=== PATIENT | female | born 1960 | race Caucasian/White ===

== ENCOUNTER → 2016-12-14 | Outpatient (CLI) | payer MEDICAID | END | disposition home or self-care (01) | LOC: MW.CHOBGYN 14:32 | PROVIDERS: ATTEND Nurse Practitioner Women's Health | DX: E11.9 Type 2 diabetes mellitus without complications (principal); R05 Cough | CPT/HCPCS: 81001 ==

== ENCOUNTER 2020-09-25 13:50 | Observation (INO) | payer MEDICAID ==
[2020-09-25] MEDS ORDERED: Morphine 4 MG/ML Syringe IVPUSH ONE (14:02)
[2020-09-25] MEDS ORDERED: Ondansetron 4 MG/2 ML SDV IVPUSH ONE (14:02)
[2020-09-25] MEDS ORDERED: Sodium Chloride 0.9% 10 ML Syringe FLUSH PRN (14:02)
[2020-09-25] MEDS ORDERED: Sodium Chloride 0.9% 2.5 ML Syringe FLUSH PRN (14:02)
--- NOTE | 2020-09-25 14:05 | EDM.PDOC ---
ED HPI GENERAL MEDICAL PROBLEM - General Chief Complaint: Abdominal Pain Stated Complaint: SHARP PAINS Time Seen by Provider: 09/25/20 13:54 Source of Information: Reports: Patient History Limitations: Reports: No Limitations - History of Present Illness INITIAL COMMENTS - FREE TEXT/NARRATIVE: HISTORY AND PHYSICAL: History of present illness: Patient is a 60-year-old female who presents to the emergency room with complaints of right lower quadrant abdominal pain, nausea and vomiting since yesterday. She states the pain initially started as a burning sensation is now a "sharp stabbing pain". She does have some mild nausea and vomiting associated with this. Patient denies any fever, chills, headache, change in vision, syncope or near syncope. Denies any chest pain, back pain, shortness of breath, mopped assist or cough. Denies any diarrhea, constipation or dysuria. Has not noted any blood in urine or stool. No chance of , total hysterectomy. Patient has been eating and drinking appropriately. Review of systems: As per history of present illness and below otherwise all systems reviewed and negative. Past medical history: As per history of present illness and as reviewed below otherwise noncontributory. Surgical history: As per history of present illness and as reviewed below otherwise noncontributory. Social history: See social history for further information Family history: As per history of present illness and as reviewed below otherwise noncontributory. Physical exam: General: Well developed and well nourished 60-year-old female. Alert and orientated x 3. Nontoxic in appearance, tearful but in no acute distress. Vital signs are stable and have been reviewed by me. Nursing notes were reviewed. HEENT: Atraumatic, normocephalic, pupils equal and reactive bilaterally, negative for conjunctival pallor or scleral icterus, mucous membranes moist, TMs normal bilaterally, throat clear, neck supple, nontender, trachea midline. No drooling or trismus noted. No meningeal signs. No hot potato voice noted. Lungs: Clear to auscultation, breath sounds equal bilaterally, chest nontender. Normal work of breathing, no accessory muscles used. Heart: S1S2, regular rate and rhythm without overt murmur Abdomen: Soft, obese, LUQ tenderness, right lower quadrant tenderness with + rebound tenderness. Negative for masses. Negative for costovertebral tenderness. Skin: Intact, warm, dry. No lesions or rashes noted. Hematologic: No petechiae or purpra. Mucosa appropriate color and normal nail bed color and refill. Extremities: Atraumatic, moves all extremities per self without difficulty or deficits, negative for cords or calf pain. Neurovascular unremarkable. Neuro: Awake, alert, oriented. Cranial nerves II through XII unremarkable. Cerebellum unremarkable. Motor and sensory unremarkable throughout. Exam nonfocal. Psychiatric: Mood and affect are appropriate. Normal thought process. Answering questions appropriately. Notes: Patient does have a slight leukocytosis. CT scan is pending. Suspecting an appendicitis. Instructed to be NPO. CT shows acute appendicitis. Hepatic steatosis. Mild prominence of the distal esophageal wall versus under distention. Correlate clinically for mild esophagitis and consider follow-up evaluation. A slightly higher than water attenuation right renal low-density lesion, probably a mildly proteinaceous or hemorrhagic cyst. I have talked with the patient about today's findings, in addition to providing specific details for plan of care. 1610: Dr Moraes was consulted on this patient and will come and see her for OR 1640: Dr Moraes here to see patient. Diagnostics: CBC, CMP, UA, Lipase, CT abd/pelvis Therapeutics: IV fluids, Morphine, Zofran, Toradol, 2gm Mefoxine Impression: Acute appendicitis Plan: To OR with Dimitry Definitive disposition and diagnosis as appropriate pending reevaluation and review of above. Adbominal Pain Pain Score (Numeric/FACES): 8 - Related Data Allergies Allergy/AdvReac Type Severity Reaction Status Date / Time No Known Allergies Allergy Verified 09/25/20 14:04 Home Meds: Home Meds Insulin Aspart [Novolog Flexpen] 22 units SQ TIDAC 06/13/15 [History] Furosemide 20 mg PO DAILY PRN 09/25/20 [History] Gabapentin [Neurontin] 600 mg PO TID 09/25/20 [History] Insulin Degludec [Tresiba] 140 unit SQ DAILY 09/25/20 [History] Liraglutide [Victoza 3-Christopher] 1.8 mg SQ DAILY 09/25/20 [History] Metoclopramide [Reglan] 5 mg PO TIDAC 09/25/20 [History] lisinopriL [Lisinopril] 30 mg PO BID 09/25/20 [History] Past Medical History Cardiovascular History: Reports: High Cholesterol, Hypertension Genitourinary History: Reports: Renal Calculus Endocrine/Metabolic History: Reports: Diabetes, Type II - Past Surgical History Female Surgical History: Reports: Hysterectomy ED ROS GENERAL - Review of Systems Review Of Systems: Comprehensive ROS is negative, except as noted in HPI. ED EXAM, GI/ABD - Physical Exam Exam: See Below (See dictation) Course - Vital Signs Last Recorded V/S: Last Vital Signs Temp 97.9 F 09/25/20 19:05 Pulse 62 09/25/20 19:46 Resp 10 L 09/25/20 19:46 BP 143/71 H 09/25/20 19:46 Pulse Ox 99 09/25/20 19:46 - Orders/Labs/Meds Orders: Active Orders 24 hr Category Date Time Status Sodium Chloride 0.9% [Saline Flush] Med 09/25/20 14:02 Active 10 ml FLUSH ASDIRECTED PRN Sodium Chloride 0.9% [Saline Flush] Med 09/25/20 14:02 Active 2.5 ml FLUSH ASDIRECTED PRN Saline Lock Insert [OM.PC] Stat Oth 09/25/20 14:02 Ordered Medication Orders Acetaminophen (Tylenol) 325 mg PO Q4H PRN PRN Reason: Fever Greater Than 101 Hydrocodone Bitart/Acetaminophen ([place] 325-5 Mg) 1 - 2 tab PO Q4H PRN PRN Reason: Pain (moderate 4-6) Dextrose/Water (Dextrose 50% In Water) 50 ml IVPUSH ASDIRECTED PRN PRN Reason: Hypoglycemia Furosemide (Lasix) 20 mg PO DAILY PRN PRN Reason: EDEMA Gabapentin (Neurontin) 600 mg PO TID PHOEBE Glucagon (Glucagen) 1 mg IM ASDIRECTED PRN PRN Reason: Hypoglycemia Lactated Ringer's (Ringers, Lactated) 1,000 mls @ 125 mls/hr IV ASDIRECTED PHOEBE Dextrose/Lactated Ringer's (Dextrose 5%-Lactated Ringers) 1,000 mls @ 125 mls/hr IV ASDIRECTED PHOEBE Stop: 09/26/20 02:59 Cefoxitin Sodium 1 gm/ Premix 50 mls @ 100 mls/hr IV Q8H PHOEBE Stop: 09/26/20 12:29 Insulin Aspart (Novolog) 22 unit SUBCUT TIDAC [facility] Lisinopril (Prinivil) 30 mg PO BID PHOEBE Metoclopramide HCl (Reglan) 5 mg PO TIDAC [facility] Morphine Sulfate (Morphine) 1 - 5 mg IVPUSH Q1H PRN PRN Reason: Pain (severe 7-10) Non-Formulary Medication (Insulin Degludec [Tresiba]) 140 unit SQ DAILY [facility] Non-Formulary Medication (Liraglutide) 1.8 mg SQ DAILY [facility] Ondansetron HCl (Zofran) 4 mg IVPUSH Q6H PRN PRN Reason: Nausea/Vomiting Sodium Chloride (Saline Flush) 10 ml FLUSH ASDIRECTED PRN PRN Reason: Keep Vein Open Last Admin: 09/25/20 14: Dose: 10 ml Documented by: [id number] Sodium Chloride (Saline Flush) 2.5 ml FLUSH ASDIRECTED PRN PRN Reason: Keep Vein Open Last Admin: 09/25/20 14:21 Dose: 2.5 ml Documented by: [id number] Labs: Laboratory Tests 09/25/20 09/25/20 09/25/20 Range/Units 14:05 14:05 14:10 WBC 12.50 H (4.0-11.0) K/uL RBC 5.21 (4.30-5.90) M/uL Hgb 15.6 (12.0-16.0) g/dL Hct 46.2 H (36.0-46.0) % MCV 88.7 (80.0-98.0) fL MCH 29.9 (27.0-32.0) pg MCHC 33.8 (31.0-37.0) g/dL RDW Std Deviation 41.2 (28.0-62.0) fl RDW Coeff of Chayo 13 (11.0-15.0) % Plt Count 168 (150-400) K/uL MPV 10.00 (7.40-12.00) fL Neut % (Auto) 70.0 (48.0-80.0) % Lymph % (Auto) 23.8 (16.0-40.0) % Cross % (Auto) 5.3 (0.0-15.0) % Eos % (Auto) 0.8 (0.0-7.0) % Baso % (Auto) 0.1 (0.0-1.5) % Neut # (Auto) 8.8 H (1.4-5.7) K/uL Lymph # (Auto) 3.0 H (0.6-2.4) K/uL Cross # (Auto) 0.7 (0.0-0.8) K/uL Eos # (Auto) 0.1 (0.0-0.7) K/uL Baso # (Auto) 0.0 (0.0-0.1) K/uL Nucleated RBC % 0.0 /100WBC Nucleated RBCs # 0 K/uL Sodium 142 (136-145) mmol/L Potassium 4.1 (3.5-5.1) mmol/L Chloride 103 (98-107) mmol/L Carbon Dioxide 28.1 (21.0-32.0) mmol/L BUN 12 (7.0-18.0) mg/dL Creatinine 0.9 (0.6-1.0) mg/dL Est Cr Clr Drug Dosing 58.84 mL/min Estimated GFR (MDRD) > 60.0 ml/min Glucose 93 (74-106) mg/dL Calcium 9.5 (8.5-10.1) mg/dL Total Bilirubin 1.0 (0.2-1.0) mg/dL AST 21 (15-37) IU/L ALT 35 (14-63) IU/L Alkaline Phosphatase 97 (46-116) U/L Total Protein 8.4 H (6.4-8.2) g/dL Albumin 4.3 (3.4-5.0) g/dL Globulin 4.1 H (2.6-4.0) g/dL Albumin/Globulin Ratio 1.1 (0.9-1.6) Lipase 119 (73-393) U/L Urine Color YELLOW Urine Appearance SLT CLOUDY Urine pH 7.0 (5.0-8.0) Ur Specific [place] 1.015 (1.001-1.035) Urine Protein TRACE H (NEGATIVE) mg/dL Urine Glucose (UA) NEGATIVE (NEGATIVE) mg/dL Urine Ketones NEGATIVE (NEGATIVE) mg/dL Urine Occult Blood NEGATIVE (NEGATIVE) Urine Nitrite NEGATIVE (NEGATIVE) Urine Bilirubin NEGATIVE (NEGATIVE) Urine Urobilinogen >=8.0 H (<2.0) EU/dL Ur Leukocyte Esterase NEGATIVE (NEGATIVE) Urine RBC 0-2 (0-2/HPF) Urine WBC 0-2 (0-5/HPF) Ur Epithelial Cells MODERATE (NONE-FEW) Urine Bacteria 2+ H (NEGATIVE) SARS-CoV-2 RNA (HARI) (NEGATIVE) 09/25/20 Range/Units 16:15 WBC (4.0-11.0) K/uL RBC (4.30-5.90) M/uL Hgb (12.0-16.0) g/dL Hct (36.0-46.0) % MCV (80.0-98.0) fL MCH (27.0-32.0) pg MCHC (31.0-37.0) g/dL RDW Std Deviation (28.0-62.0) fl RDW Coeff of Chayo (11.0-15.0) % Plt Count (150-400) K/uL MPV (7.40-12.00) fL Neut % (Auto) (48.0-80.0) % Lymph % (Auto) (16.0-40.0) % Cross % (Auto) (0.0-15.0) % Eos % (Auto) (0.0-7.0) % Baso % (Auto) (0.0-1.5) % Neut # (Auto) (1.4-5.7) K/uL Lymph # (Auto) (0.6-2.4) K/uL Cross # (Auto) (0.0-0.8) K/uL Eos # (Auto) (0.0-0.7) K/uL Baso # (Auto) (0.0-0.1) K/uL Nucleated RBC % /100WBC Nucleated RBCs # K/uL Sodium (136-145) mmol/L Potassium (3.5-5.1) mmol/L Chloride (98-107) mmol/L Carbon Dioxide (21.0-32.0) mmol/L BUN (7.0-18.0) mg/dL Creatinine (0.6-1.0) mg/dL Est Cr Clr Drug Dosing mL/min Estimated GFR (MDRD) ml/min Glucose (74-106) mg/dL Calcium (8.5-10.1) mg/dL Total Bilirubin (0.2-1.0) mg/dL AST (15-37) IU/L ALT (14-63) IU/L Alkaline Phosphatase (46-116) U/L Total Protein (6.4-8.2) g/dL Albumin (3.4-5.0) g/dL Globulin (2.6-4.0) g/dL Albumin/Globulin Ratio (0.9-1.6) Lipase (73-393) U/L Urine Color Urine Appearance Urine pH (5.0-8.0) Ur Specific [place] (1.001-1.035) Urine Protein (NEGATIVE) mg/dL Urine Glucose (UA) (NEGATIVE) mg/dL Urine Ketones (NEGATIVE) mg/dL Urine Occult Blood (NEGATIVE) Urine Nitrite (NEGATIVE) Urine Bilirubin (NEGATIVE) Urine Urobilinogen (<2.0) EU/dL Ur Leukocyte Esterase (NEGATIVE) Urine RBC (0-2/HPF) Urine WBC (0-5/HPF) Ur Epithelial Cells (NONE-FEW) Urine Bacteria (NEGATIVE) SARS-CoV-2 RNA (HARI) NEGATIVE (NEGATIVE) Meds: Medications Generic Name Dose Route Start Last Admin Trade Name Freq PRN Reason Stop Dose Admin Acetaminophen 325 mg 09/25/20 19:08 Tylenol PO Q4H PRN Fever Greater Than 101 Hydrocodone Bitart/Acetaminophen 1 - 2 tab 09/25/20 19:08 [place] 325-5 Mg PO Q4H PRN Pain (moderate 4-6) Dextrose/Water 50 ml 09/25/20 19:06 Dextrose 50% In Water IVPUSH ASDIRECTED PRN Hypoglycemia Furosemide 20 mg 09/25/20 19:06 Lasix PO DAILY PRN EDEMA Gabapentin 600 mg 09/25/20 22:00 Neurontin PO TID PHOEBE Glucagon 1 mg 09/25/20 19:06 Glucagen IM ASDIRECTED PRN Hypoglycemia Lactated Ringer's 1,000 mls @ 125 mls/hr 09/25/20 17:15 Ringers, Lactated IV ASDIRECTED PHOEBE Dextrose/Lactated Ringer's 1,000 mls @ 125 mls/hr 09/25/20 19:00 Dextrose 5%-Lactated Ringers IV 09/26/20 02:59 ASDIRECTED PHOEBE Cefoxitin Sodium 1 gm/ Premix 50 mls @ 100 mls/hr 09/25/20 20:00 IV 09/26/20 12:29 Q8H PHOEBE Insulin Aspart 22 unit 09/26/20 07:30 Novolog SUBCUT TIDAC [facility] Lisinopril 30 mg 09/25/20 21:00 Prinivil PO BID [facility] Metoclopramide HCl 5 mg 09/26/20 07:30 Reglan PO TIDAC [facility] Morphine Sulfate 1 - 5 mg 09/25/20 19:08 Morphine IVPUSH Q1H PRN Pain (severe 7-10) Non-Formulary Medication 140 unit 09/26/20 09:00 Insulin Degludec [Tresiba] SQ DAILY [facility] Non-Formulary Medication 1.8 mg 09/26/20 09:00 Liraglutide SQ DAILY [facility] Ondansetron HCl 4 mg 09/25/20 19:08 Zofran IVPUSH Q6H PRN Nausea/Vomiting Sodium Chloride 10 ml 09/25/20 14:02 09/25/20 14:21 Saline Flush FLUSH 10 ml ASDIRECTED PRN Administration Keep Vein Open Sodium Chloride 2.5 ml 09/25/20 14:02 09/25/20 14:21 Saline Flush FLUSH 2.5 ml ASDIRECTED PRN Administration Keep Vein Open Discontinued Medications Generic Name Dose Route Start Last Admin Trade Name Freq PRN Reason Stop Dose Admin Bupivacaine HCl Confirm 09/25/20 17:26 Sensorcaine-Mpf 0.5% Administered 09/25/20 17:27 Dose 10 ml .ROUTE .STK-MED ONE Cefazolin Sodium Confirm 09/25/20 17:26 Ancef Administered 09/25/20 17:27 Dose 1 gm .ROUTE .STK-MED ONE Fentanyl Confirm 09/25/20 17:02 Sublimaze Administered 09/25/20 17:03 Dose 250 mcg .ROUTE .STK-MED ONE Fentanyl 50 mcg 09/25/20 17:14 Sublimaze IVPUSH Q5M PRN Pain Glycopyrrolate Confirm 09/25/20 17:03 Robinul Administered 09/25/20 17:04 Dose 0.8 mg .ROUTE .STK-MED ONE Hydromorphone HCl 1 mg 09/25/20 16:10 09/25/20 16:15 Dilaudid IVPUSH 09/25/20 16:11 1 mg ONETIME ONE Administration Lactated Ringer's 1,000 mls @ 125 mls/hr 09/25/20 14:15 09/25/20 14:27 Ringers, Lactated IV 999 mls/hr ASDIRECTED PHOEBE Infusion Cefoxitin Sodium 2 gm/ Premix 50 mls @ 100 mls/hr 09/25/20 16:52 IV 09/25/20 17:21 ONETIME ONE Acetaminophen 1,000 mg/ Premix 100 mls @ 400 mls/hr 09/25/20 17:14 IV Q6H PRN Pain Iopamidol 100 ml 09/25/20 15:24 09/25/20 15:25 Isovue Multipack-370 (76%) IVPUSH 09/25/20 15:25 100 ml ONETIME STA Administration Ketorolac Tromethamine 30 mg 09/25/20 15:44 09/25/20 15:52 Toradol IVPUSH 09/25/20 15:45 30 mg ONETIME ONE Administration Ketorolac Tromethamine Confirm 09/25/20 17:03 Toradol Administered 09/25/20 17:04 Dose 30 mg .ROUTE .STK-MED ONE Lidocaine Confirm 09/25/20 17:03 Xylocaine-Mpf 2% Administered 09/25/20 17:04 Dose 5 ml .ROUTE .STK-MED ONE Midazolam HCl Confirm 09/25/20 17:01 Versed 1 Mg/Ml Administered 09/25/20 17:02 Dose 2 mg .ROUTE .STK-MED ONE Morphine Sulfate 4 mg 09/25/20 14:02 09/25/20 14:20 Morphine IVPUSH 09/25/20 14:03 4 mg ONETIME ONE Administration Ondansetron HCl 4 mg 09/25/20 14:02 09/25/20 14:21 Zofran IVPUSH 09/25/20 14:03 4 mg ONETIME ONE Administration Ondansetron HCl Confirm 09/25/20 17:03 Zofran Administered 09/25/20 17:04 Dose 4 mg .ROUTE .STK-MED ONE Propofol Confirm 09/25/20 17:01 Diprivan 20 Ml Administered 09/25/20 17:02 Dose 200 mg .ROUTE .STK-MED ONE Rocuronium [place]geon Confirm 09/25/20 17:03 Rocuronium [place] Administered 09/25/20 17:04 Dose 50 mg .ROUTE .STK-MED ONE Sugammadex Sodium Confirm 09/25/20 18:47 Bridion Administered 09/25/20 18:48 Dose 200 mg .ROUTE .STK-MED ONE Departure - Departure Time of Disposition: 16:12 Disposition: Still A Patient 30 Clinical Impression: Appendicitis Qualifiers: Appendicitis type: acute appendicitis Acute appendicitis type: with localized peritonitis Appendicitis gangrene presence: without gangrene Appendicitis perforation presence: without perforation Appendicitis abscess presence: without abscess Qualified Code(s): K35.30 - Acute appendicitis with localized peritonitis, without perforation or gangrene - Discharge Information Sepsis Event Note (ED) - Focused Exam Vital Signs: Vital Signs Temp Pulse Resp BP Pulse Ox 09/25/20 16:31 73 137/69 94 L 09/25/20 16:01 70 16 146/74 H 94 L 09/25/20 15:40 74 16 142/67 H 90 L 09/25/20 14:32 79 125/75 96 09/25/20 14:27 70 17 136/53 L 98 09/25/20 14:04 97.7 F 87 17 178/82 H 98 - My Orders Last 24 Hours: My Active Orders 09/25/20 14:02 Sodium Chloride 0.9% [Saline Flush] 10 ml FLUSH ASDIRECTED PRN Sodium Chloride 0.9% [Saline Flush] 2.5 ml FLUSH ASDIRECTED PRN Saline Lock Insert [OM.PC] Stat - Assessment/Plan Last 24 Hours: My Active Orders 09/25/20 14:02 Sodium Chloride 0.9% [Saline Flush] 10 ml FLUSH ASDIRECTED PRN Sodium Chloride 0.9% [Saline Flush] 2.5 ml FLUSH ASDIRECTED PRN Saline Lock Insert [OM.PC] Stat
[2020-09-25] MEDS ORDERED: Lactated Ringers 1,000 ML IV SCH (14:15)
[2020-09-25 14:38] LABS: BLOOD UREA NITROGEN,BUN 12 mg/dL (7.0-18.0); CARBON DIOXIDE,CO2 28.1 mmol/L (21.0-32.0); CHLORIDE,CL 103 mmol/L (98-107); GLUCOSE RANDOM 93 mg/dL (74-106); LIPASE 119 U/L (73-393); POTASSIUM,K 4.1 mmol/L (3.5-5.1); SODIUM,NA 142 mmol/L (136-145)
[2020-09-25] MEDS ORDERED: Iopamidol 755 MG/ML 500 ML Multipack Bottle IVPUSH STA (15:24)
[2020-09-25] MEDS ORDERED: Ketorolac 30 MG/ML SDV IVPUSH ONE (15:44)
--- NOTE | 2020-09-25 16:05 | CT ---
INDICATION: Abdominal pain TECHNIQUE: CT abdomen and pelvis acquired with IV contrast. 100 mL of Isovue 370 administered. COMPARISON: None available FINDINGS: Lower chest: An apparent small hiatal hernia. Mild prominence of the distal esophageal wall versus underdistention. Liver: Hepatic steatosis. Spleen: Unremarkable. Pancreas: Mild dilatation of the central pancreatic duct, measuring up to 6 mm in the pancreatic body focally. Gallbladder and bile ducts: Unremarkable. Adrenal glands: Unremarkable. Kidneys: No hydronephrosis. A 7 mm nonobstructive left renal calculus. A 1.9 x 1.6 cm slightly higher than water attenuation right renal lower pole exophytic lesion. GI tract: A dilated appendix, measuring up to 1.1 cm, with periappendiceal stranding and edema, consistent with acute appendicitis. Some fluid-filled, not abnormally dilated, small bowel segments probably represent mild reactive ileus. No significant pericolonic changes. Vascular structures: Mild atherosclerotic changes. Lymph nodes: Unremarkable. Miscellaneous: Tiny periappendiceal fluid. No free air. Mild subcutaneous induration in the anterior lower abdominal wall, nonspecific. Pelvic Organs: Hysterectomy. A surgical clip in the right adnexal region. No gross bladder abnormality seen. Bones: Unremarkable for age. IMPRESSION: Acute appendicitis. Hepatic steatosis. Mild prominence of the distal esophageal wall versus under distention. Correlate clinically for mild esophagitis and consider follow-up evaluation. A slightly higher than water attenuation right renal low-density lesion, probably a mildly proteinaceous or hemorrhagic cyst. Follow-up with nonemergent sonography. Please note that all CT scans at this facility use dose modulation, iterative reconstruction, and/or weight-based dosing when appropriate to reduce radiation dose to as low as reasonably achievable. Dictated by Ovidio Byrd MD @ Sep 25 2020 3:49PM Signed by Dr. Ovidio Byrd @ Sep 25 2020 4:03PM
[2020-09-25] MEDS ORDERED: HYDROmorphone 1 MG/ML Syringe IVPUSH ONE (16:10)
[2020-09-25] MEDS ORDERED: cefOXitin 2 GM in Premix Bag 1 BAG IV ONE (16:52)
[2020-09-25] MEDS ORDERED: Midazolam 1 MG/ML 2 ML SDV ONE (17:01)
[2020-09-25] MEDS ORDERED: Propofol 200 MG/20 ML SDV ONE (17:01)
[2020-09-25] MEDS ORDERED: fentaNYL 250 MCG/5 ML SDV ONE (17:02)
[2020-09-25] MEDS ORDERED: Lidocaine 2% 5 ML SDV ONE (17:03)
[2020-09-25] MEDS ORDERED: Succinylcholine/Sod PF 100 MG/5 ML SYRINGE IV ONE (17:03)
[2020-09-25] MEDS ORDERED: Rocuronium Bromide 50 MG/5 ML Syringe ONE (17:03)
[2020-09-25] MEDS ORDERED: Ketorolac 30 MG/ML SDV ONE (17:03)
[2020-09-25] MEDS ORDERED: Glycopyrrolate 0.2 MG/ML SDV ONE (17:03)
[2020-09-25] MEDS ORDERED: Ondansetron 4 MG/2 ML SDV ONE (17:03)
--- NOTE | 2020-09-25 17:09 | PCM.CONS ---
H&P History of Present Illness - General Date of Service: 09/25/20 Admit Problem/Dx: Admission Diagnosis/Problem Admission Diagnosis/Problem Appendicitis Source of Information: Patient History Limitations: Reports: No Limitations - History of Present Illness Initial Comments - Free Text/Narative: Patient is a 60-year-old female who presented to the emergency room today compl aining of abdominal pain that has now localized to the right lower quadrant. Patient relates her pain started yesterday and initially she thought was muscle cramps. The pain progressed and migrated to the right lower quadrant. She does note nausea without vomiting. She has not had anything to eat since 8:30 last night. She says its hard for her to walk around and she can't stand up straight when she walks. She denies any fever or chills. She says her appetite is poor. Symptom Onset Date: 09/24/20 Duration of Symptoms: Reports: Hour(s): Location: Reports: Abdomen Quality: Reports: Burning, Pressure Severity: Moderate Improves with: Reports: Rest Worsens with: Reports: Movement Context: Reports: Sick Contact, Rest Associated Symptoms: Reports: Loss of Appetite, Nausea/Vomiting (Nausea, no vomiting). Denies: Fever/Chills Adbominal Pain Pain Score (Numeric/FACES): 8 - Related Data Allergies/Adverse Reactions: Allergies Allergy/AdvReac Type Severity Reaction Status Date / Time No Known Allergies Allergy Verified 09/25/20 14:04 Home Medications: Home Meds Insulin Aspart [Novolog Flexpen] 22 units SQ TIDAC 06/13/15 [History] Furosemide 20 mg PO DAILY PRN 09/25/20 [History] Gabapentin [Neurontin] 600 mg PO TID 09/25/20 [History] Insulin Degludec [Tresiba] 140 unit SQ DAILY 09/25/20 [History] Liraglutide [Victoza 3-Christopher] 1.8 mg SQ DAILY 09/25/20 [History] Metoclopramide [Reglan] 5 mg PO TIDAC 09/25/20 [History] lisinopriL [Lisinopril] 30 mg PO BID 09/25/20 [History] Past Medical History Cardiovascular History: Reports: High Cholesterol, Hypertension Genitourinary History: Reports: Renal Calculus Endocrine/Metabolic History: Reports: Diabetes, Type II - Infectious Disease History Infectious Disease History: Reports: None - Past Surgical History Female Surgical History: Reports: Hysterectomy, Kidney stone extraction, Salpingo-Oophorectomy Social & Family History - Tobacco Use Tobacco Use Status *Q: Never Tobacco User - Recreational Drug Use Recreational Drug Use: No H&P Review of Systems - Review of Systems: Review Of Systems: See Below General: Reports: Malaise. Denies: Fever, Chills, Weakness, Fatigue, Night Sweats HEENT: Reports: No Symptoms Pulmonary: Denies: Shortness of Breath, Wheezing Cardiovascular: Denies: Chest Pain, Palpitations Gastrointestinal: Reports: Abdominal Pain, Anorexia, Decreased Appetite, Nausea. Denies: Black Stool, Bloody Stool, Melena, Vomiting Genitourinary: Denies: Dysuria, Frequency, Burning, Pain, Urgency Musculoskeletal: Reports: No Symptoms Skin: Denies: Cyanosis, Jaundice, Mottled Psychiatric: Denies: Confusion, Depression, Anxiety Neurological: Reports: No Symptoms Hematologic/Lymphatic: Reports: No Symptoms Immunologic: Reports: No Symptoms Exam - Exam Exam: See Below - Vital Signs Vital Signs: Last Vital Signs Temp 97.7 F 09/25/20 14:04 Pulse 73 09/25/20 16:31 Resp 16 09/25/20 16:01 BP 137/69 09/25/20 16:31 Pulse Ox 94 L 09/25/20 16:31 Weight: 200 lb - Exam Quality Assessment: Supplemental Oxygen. No: Central Line/PICC, Urinary Cath eter General: Alert, Oriented, Cooperative, Moderate Distress HEENT: Conjunctiva Clear, Nares Patent, Pupils Equal, Pupils Reactive, PERRLA. No: Scleral Icterus Neck: Supple, Trachea Midline Lungs: Clear to Auscultation, Normal Respiratory Effort Cardiovascular: Regular Rate, Regular Rhythm, Normal S1, Normal S2. No: Tachycardia GI/Abdominal Exam: Normal Bowel Sounds, Soft, No Distention, Guarding, Rebound, Tender. No: Rigid (Female) Exam: Deferred Rectal (Female) Exam: Deferred Back Exam: Normal Inspection Extremities: Normal Inspection, Normal Range of Motion Peripheral Pulses: 4+: Posterior Tibial (L), Posterior Tibial (R), Dorsalis Pedis (L), Dorsalis Pedis (R) Neurological: Cranial Nerves Intact Neuro Extensive - Mental Status: Alert, Oriented x3, Normal Mood/Affect Psychiatric: Alert, Normal Affect, Normal Mood - Patient Data Lab Results Last 24 hrs: Laboratory Results - last 24 hr 09/25/20 09/25/20 09/25/20 Range/Units 14:05 14:05 14:10 WBC 12.50 H (4.0-11.0) K/uL RBC 5.21 (4.30-5.90) M/uL Hgb 15.6 (12.0-16.0) g/dL Hct 46.2 H (36.0-46.0) % MCV 88.7 (80.0-98.0) fL MCH 29.9 (27.0-32.0) pg MCHC 33.8 (31.0-37.0) g/dL RDW Std Deviation 41.2 (28.0-62.0) fl RDW Coeff of Chayo 13 (11.0-15.0) % Plt Count 168 (150-400) K/uL MPV 10.00 (7.40-12.00) fL Neut % (Auto) 70.0 (48.0-80.0) % Lymph % (Auto) 23.8 (16.0-40.0) % [place] % (Auto) 5.3 (0.0-15.0) % Eos % (Auto) 0.8 (0.0-7.0) % Baso % (Auto) 0.1 (0.0-1.5) % Neut # (Auto) 8.8 H (1.4-5.7) K/uL Lymph # (Auto) 3.0 H (0.6-2.4) K/uL [place] # (Auto) 0.7 (0.0-0.8) K/uL Eos # (Auto) 0.1 (0.0-0.7) K/uL Baso # (Auto) 0.0 (0.0-0.1) K/uL Nucleated RBC % 0.0 /100WBC Nucleated RBCs # 0 K/uL Sodium 142 (136-145) mmol/L Potassium 4.1 (3.5-5.1) mmol/L Chloride 103 (98-107) mmol/L Carbon Dioxide 28.1 (21.0-32.0) mmol/L BUN 12 (7.0-18.0) mg/dL Creatinine 0.9 (0.6-1.0) mg/dL Est Cr Clr Drug Dosing 58.84 mL/min Estimated GFR (MDRD) > 60.0 ml/min Glucose 93 (74-106) mg/dL Calcium 9.5 (8.5-10.1) mg/dL Total Bilirubin 1.0 (0.2-1.0) mg/dL AST 21 (15-37) IU/L ALT 35 (14-63) IU/L Alkaline Phosphatase 97 (46-116) U/L Total Protein 8.4 H (6.4-8.2) g/dL Albumin 4.3 (3.4-5.0) g/dL Globulin 4.1 H (2.6-4.0) g/dL Albumin/Globulin Ratio 1.1 (0.9-1.6) Lipase 119 (73-393) U/L Urine Color YELLOW Urine Appearance SLT CLOUDY Urine pH 7.0 (5.0-8.0) Ur Specific [place] 1.015 (1.001-1.035) Urine Protein TRACE H (NEGATIVE) mg/dL Urine Glucose (UA) NEGATIVE (NEGATIVE) mg/dL Urine Ketones NEGATIVE (NEGATIVE) mg/dL Urine Occult Blood NEGATIVE (NEGATIVE) Urine Nitrite NEGATIVE (NEGATIVE) Urine Bilirubin NEGATIVE (NEGATIVE) Urine Urobilinogen >=8.0 H (<2.0) EU/dL Ur Leukocyte Esterase NEGATIVE (NEGATIVE) Urine RBC 0-2 (0-2/HPF) Urine WBC 0-2 (0-5/HPF) Ur Epithelial Cells MODERATE (NONE-FEW) Urine Bacteria 2+ H (NEGATIVE) Result Diagrams: 09/25/20 14:05 09/25/20 14:05 Imaging Impressions Last 24 hrs: CT scan has been personally reviewed and I agree with the radiologic findings of acute appendicitis. Sepsis Event Note - Evaluation Sepsis Screening Result: No Definite Risk - Focused Exam Vital Signs: Vital Signs Temp Pulse Resp BP Pulse Ox 09/25/20 16:31 73 137/69 94 L 09/25/20 16:01 70 16 146/74 H 94 L 09/25/20 15:40 74 16 142/67 H 90 L 09/25/20 14:32 79 125/75 96 09/25/20 14:27 70 17 136/53 L 98 09/25/20 14:04 97.7 F 87 17 178/82 H 98 Consult PN Assessment/Plan Procedures: Procedures ASSAY OF AMYLASE (09/18/15) ASSAY OF BLOOD/URIC ACID (03/15/15) ASSAY OF CK (CPK) (03/28/15) ASSAY OF LIPASE (09/18/15) ASSAY OF TROPONIN QUANT (03/28/15) C-REACTIVE PROTEIN (09/18/15) CHEST X-RAY 1 VIEW FRONTAL (03/28/15) COMP SCREEN MAMMOGRAM ADD-ON (04/11/15) COMPLETE CBC W/AUTO DIFF WBC (09/18/15) COMPREHEN METABOLIC PANEL (09/18/15) CREATINE MB FRACTION (03/28/15) CT ABD & PELV 1/> REGNS (09/18/15) ELECTROCARDIOGRAM TRACING (03/28/15) EMERGENCY DEPT VISIT (09/18/15) EMERGENCY DEPT VISIT (03/28/15) GLUCOSE BLOOD TEST (06/13/15) HYDRATE IV INFUSION ADD-ON (09/18/15) MEDICAL NUTRITION INDIV IN (02/09/18) ROUTINE VENIPUNCTURE (03/28/15) SMEAR WET [place] SALINE/INK (04/11/15) THER/PROPH/DIAG INJ IV PUSH (09/18/15) TX/PRO/DX INJ NEW DRUG ADDON (09/18/15) URINALYSIS AUTO W/SCOPE (12/14/16) URINE CULTURE/COLONY COUNT (09/18/15) (1) Type 2 diabetes mellitus SNOMED Code(s): 00233631 Code(s): E11.9 - TYPE 2 DIABETES MELLITUS WITHOUT COMPLICATIONS Current Visit: Yes Qualifiers: Diabetes mellitus group home insulin use: with group home use Diabetes mellitus complication detail: with polyneuropathy (2) Appendicitis SNOMED Code(s): 14971377 Code(s): K37 - UNSPECIFIED APPENDICITIS Current Visit: Yes Qualifiers: Appendicitis type: acute appendicitis Problem List Initiated/Reviewed/Updated: Yes My Orders Last 24 Hours: My Active Orders 09/25/20 Dinner Nothing Per Oral Diet [DIET] 09/25/20 17:02 Antiembolic Devices [RC] PER UNIT ROUTINE Insert Urinary Catheter [OM.PC] Timed Oxygen Therapy [RC] ASDIRECTED RT Incentive Spirometry [RC] Q1HWA Skin Preparation [RC] .PREOP Urinary Catheter Assessment [RC] ASDIRECTED Urinary Catheter Assessment [RC] ASDIRECTED Vital Signs [RC] PER UNIT ROUTINE Antiembolic Hose [OM.PC] Routine Resuscitation Status Routine 09/25/20 17:03 Urinary Catheter Assessment [RC] ASDIRECTED 09/25/20 17:15 Lactated Ringers @ 125 MLS/HR(1000ml) Lactated Ringers [Ringers, Lactated] 1,000 ml IV ASDIRECTED Plan: Laparoscopic appendectomy, possible open appendectomy. Both operative procedures, along with the risks, including, but not limited to, bleeding, infection, pneumonia, deep venous thrombosis, pulmonary emboli, myocardial infarction, and adjacent organ injury have been reviewed with the patient who voices understanding, offers no questions and agrees to proceed.
--- NOTE | 2020-09-25 17:13 | PCM.PREANE ---
Preanesthetic Assessment - Anesthesia/Transfusion/Family Hx Anesthesia History: Prior Anesthesia Without Reaction Family History of Anesthesia Reaction: No - Review of Systems Gastrointestinal: Abdominal Pain, Nausea - Physical Assessment NPO Status Date: 09/25/20 NPO Status Time: 08:00 Vital Signs: Last Vital Signs Temp 36.5 C 09/25/20 14:04 Pulse 73 09/25/20 16:31 Resp 16 09/25/20 16:01 BP 137/69 09/25/20 16:31 Pulse Ox 94 L 09/25/20 16:31 Height: 1.63 m Weight: 90.718 kg ASA Class: 2E Dentition: Reports: Dentures - Lab Values: Laboratory Last Values WBC 12.50 K/uL (4.0-11.0) H 09/25/20 14:05 RBC 5.21 M/uL (4.30-5.90) 09/25/20 14:05 Hgb 15.6 g/dL (12.0-16.0) 09/25/20 14:05 Hct 46.2 % (36.0-46.0) H 09/25/20 14:05 MCV 88.7 fL (80.0-98.0) 09/25/20 14:05 MCH 29.9 pg (27.0-32.0) 09/25/20 14:05 MCHC 33.8 g/dL (31.0-37.0) 09/25/20 14:05 RDW Std Deviation 41.2 fl (28.0-62.0) 09/25/20 14:05 RDW Coeff of Chayo 13 % (11.0-15.0) 09/25/20 14:05 Plt Count 168 K/uL (150-400) 09/25/20 14:05 MPV 10.00 fL (7.40-12.00) 09/25/20 14:05 Neut % (Auto) 70.0 % (48.0-80.0) 09/25/20 14:05 Lymph % (Auto) 23.8 % (16.0-40.0) 09/25/20 14:05 [place] % (Auto) 5.3 % (0.0-15.0) 09/25/20 14:05 Eos % (Auto) 0.8 % (0.0-7.0) 09/25/20 14:05 Baso % (Auto) 0.1 % (0.0-1.5) 09/25/20 14:05 Neut # (Auto) 8.8 K/uL (1.4-5.7) H 09/25/20 14:05 Lymph # (Auto) 3.0 K/uL (0.6-2.4) H 09/25/20 14:05 [place] # (Auto) 0.7 K/uL (0.0-0.8) 09/25/20 14:05 Eos # (Auto) 0.1 K/uL (0.0-0.7) 09/25/20 14:05 Baso # (Auto) 0.0 K/uL (0.0-0.1) 09/25/20 14:05 Nucleated RBC % 0.0 /100WBC 09/25/20 14:05 Nucleated RBCs # 0 K/uL 09/25/20 14:05 Sodium 142 mmol/L (136-145) 09/25/20 14:05 Potassium 4.1 mmol/L (3.5-5.1) 09/25/20 14:05 Chloride 103 mmol/L (98-107) 09/25/20 14:05 Carbon Dioxide 28.1 mmol/L (21.0-32.0) 09/25/20 14:05 BUN 12 mg/dL (7.0-18.0) 09/25/20 14:05 Creatinine 0.9 mg/dL (0.6-1.0) 09/25/20 14:05 Est Cr Clr Drug Dosing 58.84 mL/min 09/25/20 14:05 Estimated GFR (MDRD) > 60.0 ml/min 09/25/20 14:05 Glucose 93 mg/dL (74-106) 09/25/20 14:05 Calcium 9.5 mg/dL (8.5-10.1) 09/25/20 14:05 Total Bilirubin 1.0 mg/dL (0.2-1.0) 09/25/20 14:05 AST 21 IU/L (15-37) 09/25/20 14:05 ALT 35 IU/L (14-63) 09/25/20 14:05 Alkaline Phosphatase 97 U/L (46-116) 09/25/20 14:05 Total Protein 8.4 g/dL (6.4-8.2) H 09/25/20 14:05 Albumin 4.3 g/dL (3.4-5.0) 09/25/20 14:05 Globulin 4.1 g/dL (2.6-4.0) H 09/25/20 14:05 Albumin/Globulin Ratio 1.1 (0.9-1.6) 09/25/20 14:05 Lipase 119 U/L (73-393) 09/25/20 14:05 Urine Color YELLOW 09/25/20 14:10 Urine Appearance SLT CLOUDY 09/25/20 14:10 Urine pH 7.0 (5.0-8.0) 09/25/20 14:10 Ur Specific [place] 1.015 (1.001-1.035) 09/25/20 14:10 Urine Protein TRACE mg/dL (NEGATIVE) H 09/25/20 14:10 Urine Glucose (UA) NEGATIVE mg/dL (NEGATIVE) 09/25/20 14:10 Urine Ketones NEGATIVE mg/dL (NEGATIVE) 09/25/20 14:10 Urine Occult Blood NEGATIVE (NEGATIVE) 09/25/20 14:10 Urine Nitrite NEGATIVE (NEGATIVE) 09/25/20 14:10 Urine Bilirubin NEGATIVE (NEGATIVE) 09/25/20 14:10 Urine Urobilinogen >=8.0 EU/dL (<2.0) H 09/25/20 14:10 Ur Leukocyte Esterase NEGATIVE (NEGATIVE) 09/25/20 14:10 Urine RBC 0-2 (0-2/HPF) 09/25/20 14:10 Urine WBC 0-2 (0-5/HPF) 09/25/20 14:10 Ur Epithelial Cells MODERATE (NONE-FEW) 09/25/20 14:10 Urine Bacteria 2+ (NEGATIVE) H 09/25/20 14:10 - Allergies Allergies/Adverse Reactions: Allergies Allergy/AdvReac Type Severity Reaction Status Date / Time No Known Allergies Allergy Verified 09/25/20 14:04 - Acknowledgements Anesthesia Type Planned: General Anesthesia Pt an Appropriate Candidate for the Planned Anesthesia: Yes Alternatives and Risks of Anesthesia Discussed w Pt/Guardian: Yes Pt/Guardian Understands and Agrees with Anesthesia Plan: Yes PreAnesthesia Questionnaire Cardiovascular History: Reports: High Cholesterol, Hypertension Genitourinary History: Reports: Renal Calculus Endocrine/Metabolic History: Reports: Diabetes, Type II - Infectious Disease History Infectious Disease History: Reports: None - Past Surgical History Female Surgical History: Reports: Hysterectomy, Kidney stone extraction, Salpingo-Oophorectomy - SUBSTANCE USE Tobacco Use Status *Q: Never Tobacco User Recreational Drug Use History: No - HOME MEDS Home Medications: Home Meds Insulin Aspart [Novolog Flexpen] 22 units SQ TIDAC 06/13/15 [History] Furosemide 20 mg PO DAILY PRN 09/25/20 [History] Gabapentin [Neurontin] 600 mg PO TID 09/25/20 [History] Insulin Degludec [Tresiba] 140 unit SQ DAILY 09/25/20 [History] Liraglutide [Victoza 3-Christopher] 1.8 mg SQ DAILY 09/25/20 [History] Metoclopramide [Reglan] 5 mg PO TIDAC 09/25/20 [History] lisinopriL [Lisinopril] 30 mg PO BID 09/25/20 [History] - CURRENT (IN HOUSE) MEDS Current Meds: Current Medications Lactated Ringer's (Ringers, Lactated) 1,000 mls @ 125 mls/hr IV ASDIRECTED PHOEBE Last Infusion: 09/25/20 14:27 Dose: 999 mls/hr Documented by: Cefoxitin Sodium 2 gm/ Premix 50 mls @ 100 mls/hr IV ONETIME ONE Stop: 09/25/20 17:21 Lactated Ringer's (Ringers, Lactated) 1,000 mls @ 125 mls/hr IV ASDIRECTED [facility] Sodium Chloride (Saline Flush) 10 ml FLUSH ASDIRECTED PRN PRN Reason: Keep Vein Open Last Admin: 09/25/20 14:21 Dose: 10 ml Documented by: Sodium Chloride (Saline Flush) 2.5 ml FLUSH ASDIRECTED PRN PRN Reason: Keep Vein Open Last Admin: 09/25/20 14:21 Dose: 2.5 ml Documented by: Discontinued Medications Fentanyl (Sublimaze) Confirm Administered Dose 250 mcg .ROUTE .STK-MED ONE Stop: 09/25/20 17:03 Glycopyrrolate (Robinul) Confirm Administered Dose 0.8 mg .ROUTE .STK-MED ONE Stop: 09/25/20 17:04 Hydromorphone HCl (Dilaudid) 1 mg IVPUSH ONETIME ONE Stop: 09/25/20 16:11 Last Admin: 09/25/20 16:15 Dose: 1 mg Documented by: Iopamidol (Isovue Multipack-370 (76%)) 100 ml IVPUSH ONETIME STA Stop: 09/25/20 15:25 Last Admin: 09/25/20 15:25 Dose: 100 ml Documented by: Ketorolac Tromethamine (Toradol) 30 mg IVPUSH ONETIME ONE Stop: 09/25/20 15:45 Last Admin: 09/25/20 15:52 Dose: 30 mg Documented by: Ketorolac Tromethamine (Toradol) Confirm Administered Dose 30 mg .ROUTE .STK-MED ONE Stop: 09/25/20 17:04 Lidocaine (Xylocaine-Mpf 2%) Confirm Administered Dose 5 ml .ROUTE .STK-MED ONE Stop: 09/25/20 17:04 Midazolam HCl (Versed 1 Mg/Ml) Confirm Administered Dose 2 mg .ROUTE .STK-MED ONE Stop: 09/25/20 17:02 Morphine Sulfate (Morphine) 4 mg IVPUSH ONETIME ONE Stop: 09/25/20 14:03 Last Admin: 09/25/20 14:20 Dose: 4 mg Documented by: Ondansetron HCl (Zofran) 4 mg IVPUSH ONETIME ONE Stop: 09/25/20 14:03 Last Admin: 09/25/20 14:21 Dose: 4 mg Documented by: Ondansetron HCl (Zofran) Confirm Administered Dose 4 mg .ROUTE .STK-MED ONE Stop: 09/25/20 17:04 Propofol (Diprivan 20 Ml) Confirm Administered Dose 200 mg .ROUTE .STK-MED ONE Stop: 09/25/20 17:02 Rocuronium [place] (Rocuronium [place]) Confirm Administered Dose 50 mg .ROUTE .STK-MED ONE Stop: 09/25/20 17:04
[2020-09-25] MEDS ORDERED: fentaNYL 100 MCG/2 ML SDV IVPUSH PRN (17:14)
[2020-09-25] MEDS ORDERED: Acetaminophen 1,000 MG in Premix Bag 1 BAG IV PRN (17:14)
[2020-09-25] MEDS ORDERED: ceFAZolin 1 GM Vial ONE (17:26)
[2020-09-25] MEDS ORDERED: Bupivacaine 0.5% 10 ML SDV ONE (17:26)
[2020-09-25] MEDS ORDERED: Sugammadex Sodium 200 MG/2 ML VIAL ONE (18:47)
[2020-09-25] MEDS ORDERED: Dextrose 5%-Lactated Ringers 1,000 ML IV SCH (19:00)
[2020-09-25] MEDS ORDERED: Furosemide 20 MG Tab PO PRN (19:06)
[2020-09-25] MEDS ORDERED: 50% Dextrose in Water 50 ML Syringe IVPUSH PRN (19:06)
[2020-09-25] MEDS ORDERED: Glucagon,Human Recombinant 1 MG Vial IM PRN (19:06)
[2020-09-25] MEDS ORDERED: Ondansetron 4 MG/2 ML SDV IVPUSH PRN (19:08)
[2020-09-25] MEDS ORDERED: Acetaminophen/HYDROcodone 325-5 MG Tab PO PRN (19:08)
[2020-09-25] MEDS ORDERED: Morphine 4 MG/ML Syringe IVPUSH PRN (19:08)
[2020-09-25] MEDS ORDERED: Acetaminophen 325 MG Tab PO PRN (19:08)
--- NOTE | 2020-09-25 19:13 | PCM.OPNOTE ---
- General Post-Op/Procedure Note Date of Surgery/Procedure: 09/25/20 Operative Procedure(s): Laparoscopic appendectomy Pre Op Diagnosis: Right lower quadrant pain. Acute abdomen. Post-Op Diagnosis: Acute nonruptured appendicitis Anesthesia Technique: General ET Tube (ASA IIE) Primary Surgeon: Kevin Moraes Fluid Replacement, Intraop: 1,700 Output, Urine Amount: 300 EBL in mLs: 10 Condition: Good Free Text/Narrative:: Intake & Output 09/25/20 09/25/20 09/25/20 03:59 11:59 19:59 Output Total 200 Balance -200 DICTATION [id number] CPT CODE 60347
--- NOTE | 2020-09-25 19:50 | PCM.POSTAN ---
POST ANESTHESIA ASSESSMENT - MENTAL STATUS Mental Status: Alert - VITAL SIGNS Vital Signs: Last Vital Signs Temp 36.6 C 09/25/20 19:05 Pulse 62 09/25/20 19:46 Resp 10 L 09/25/20 19:46 BP 143/71 H 09/25/20 19:46 Pulse Ox 99 09/25/20 19:46 - RESPIRATORY Respiratory Status: Respiratory Rate WNL - CARDIOVASCULAR CV Status: Pulse Rate WNL - GASTROINTESTINAL GI Status: No Symptoms - POST OP HYDRATION Hydration Status: Adequate & Stable
[2020-09-25] MEDS ORDERED: cefOXitin 1 GM in Premix Bag 1 BAG IV SCH (20:00)
--- NOTE | 2020-09-25 21:42 | OR ---
SURGEON: Kevin Moraes M.D. DATE OF PROCEDURE: 09/25/2020 OPERATION PERFORMED: Laparoscopic appendectomy. PRIMARY SURGEON: Kevin Moraes MD ANESTHESIA: General endotracheal. ASA CLASSIFICATION: IIE. PREOPERATIVE DIAGNOSIS: Acute right lower quadrant pain. POSTOPERATIVE DIAGNOSIS: Acute appendicitis without perforation or abscess. ESTIMATED BLOOD LOSS: 10 mL. INTRAOPERATIVE FLUID REPLACEMENT: 1700 mL of crystalloid. INTRAOPERATIVE URINARY OUTPUT: 300 mL. DESCRIPTION OF PROCEDURE: The patient was taken to the operating room and placed on the operating table in the supine position. Time-out was called for appropriate identification of the patient and procedure. Sequential compression boots were placed. Following satisfactory attainment of general anesthesia with placement of an endotracheal tube, Alaniz catheter was placed in the patient's urinary bladder. The abdomen was prepped with DuraPrep solution. Sterile drapes were applied. The skin above the umbilicus was infiltrated with 0.5% Marcaine solution. Skin incision was made and deepened through the subcutaneous tissue obtaining hemostasis with the use of electrocautery. Veress needle was introduced into the peritoneal cavity. Saline drop test was positive. Carbon dioxide pneumoperitoneum was established with the release set at 13 cm of water. Once a satisfactory pneumoperitoneum was established, the Veress needle was removed and a 5 mm camera and port were placed. Under camera vision, 12 mm suprapubic and 5 mm left lower quadrant ports were placed. Each incision had preemptively been infiltrated with 0.5% Marcaine solution. The patient was now positioned with her head down and rolled to the left. The cecum was grasped and the appendix was identified. This was acutely inflamed, although there was no cloudy fluid present. No obvious abscess. The mesoappendix was taken down with the Harmonic scalpel. The appendix was then transected at its base using the Endo-JEREMIE 45 mm stapler with a blue load, that was inspected for hemostasis and the repair was intact. The right lower quadrant was then irrigated with 1% Ancef solution and all fluid was aspirated. The appendix had promptly been placed in an Endopouch and left in situ. Once all fluid had been aspirated, the Endopouch containing appendix was removed through the 12 mm port removing the port at the same time. Again, under camera vision, the 5 mm left lower quadrant port was removed and finally the supraumbilical camera and port were removed. Wounds were inspected for hemostasis and small bleeding sites were electrocoagulated. All incisions were closed in two layers approximating the subcutaneous tissue with 3-0 Vicryl and the skin with subcuticular 4-0 Monocryl. The incisions were Steri-Stripped with half-inch Steri-Strips and dressed with sterile Tegaderm pads. Alaniz catheter was removed prior to emergence from anesthesia. Following emergence from anesthesia and extubation, the patient was taken to recovery room in stable condition. HYACINTH ARCE /[id number]
[2020-09-25] MEDS: Metoclopramide 10 MG/2 ML SDV IVPUSH PRN (21:43)
[2020-09-25] MEDS: Lisinopril 10 MG Tab PO SCH (23:33)
[2020-09-25] MEDS: Gabapentin 300 MG Cap PO SCH (23:35)
[2020-09-26] MEDS: cefOXitin 1 GM in Premix Bag 1 BAG IV SCH ×2 (01:36→10:27)
[2020-09-26] MEDS: Lactated Ringers 1,000 ML IV SCH ×2 (02:00→10:27)
[2020-09-26] MEDS: Gabapentin 300 MG Cap PO SCH ×2 (06:27→15:21)
[2020-09-26] MEDS ORDERED: Metoclopramide 5 MG Tab PO SCH (07:30)
[2020-09-26] MEDS: Metoclopramide 10 MG/2 ML SDV IVPUSH PRN (07:30)
--- NOTE | 2020-09-26 07:48 | PCM.SURGPN ---
- General Info Date of Service: 09/26/20 POD#: 1 Post-Op Diagnosis: Acute nonruptured appendicitis Functional Status: Reports: Pain Controlled, Ambulating - Review of Systems General: Reports: Appetite. Denies: Fever, Weakness HEENT: Reports: No Symptoms Pulmonary: Denies: Shortness of Breath, Pleuritic Chest Pain Cardiovascular: Denies: Chest Pain, Palpitations Gastrointestinal: Reports: Decreased Appetite, Nausea, Vomiting. Denies: Abdominal Pain Genitourinary: Denies: Dysuria, Frequency, Burning, Pain Musculoskeletal: Denies: Neck Pain, Shoulder Pain Skin: Denies: Cyanosis, Jaundice Neurological: Reports: No Symptoms Psychiatric: Reports: No Symptoms - Patient Data Vitals - Most Recent: Last Vital Signs Temp 97.3 F 09/26/20 04:00 Pulse 89 09/26/20 04:00 Resp 16 09/26/20 04:00 BP 134/71 09/26/20 04:00 Pulse Ox 94 L 09/26/20 04:00 Weight - Most Recent: 203 lb 14.841 oz I&O - Last 24 Hours: Intake & Output 09/25/20 09/26/20 09/26/20 19:59 03:59 11:59 Intake Total 3800 150 Output Total 500 75 Balance 3300 75 Lab Results Last 24 Hrs: Laboratory Results - last 24 hr 09/25/20 09/25/20 09/25/20 Range/Units 14:05 14:05 14:10 WBC 12.50 H (4.0-11.0) K/uL RBC 5.21 (4.30-5.90) M/uL Hgb 15.6 (12.0-16.0) g/dL Hct 46.2 H (36.0-46.0) % MCV 88.7 (80.0-98.0) fL MCH 29.9 (27.0-32.0) pg MCHC 33.8 (31.0-37.0) g/dL RDW Std Deviation 41.2 (28.0-62.0) fl RDW Coeff of [place]ay[place] 13 (11.0-15.0) % Plt Count 168 (150-400) K/uL MPV 10.00 (7.40-12.00) fL Neut % (Auto) 70.0 (48.0-80.0) % Lymph % (Auto) 23.8 (16.0-40.0) % [place] % (Auto) 5.3 (0.0-15.0) % Eos % (Auto) 0.8 (0.0-7.0) % Baso % (Auto) 0.1 (0.0-1.5) % Neut # (Auto) 8.8 H (1.4-5.7) K/uL Lymph # (Auto) 3.0 H (0.6-2.4) K/uL [place] # (Auto) 0.7 (0.0-0.8) K/uL Eos # (Auto) 0.1 (0.0-0.7) K/uL Baso # (Auto) 0.0 (0.0-0.1) K/uL Nucleated RBC % 0.0 /100WBC Nucleated RBCs # 0 K/uL Sodium 142 (136-145) mmol/L Potassium 4.1 (3.5-5.1) mmol/L Chloride 103 (98-107) mmol/L Carbon Dioxide 28.1 (21.0-32.0) mmol/L BUN 12 (7.0-18.0) mg/dL Creatinine 0.9 (0.6-1.0) mg/dL Est Cr Clr Drug Dosing 58.84 mL/min Estimated GFR (MDRD) > 60.0 ml/min Glucose 93 (74-106) mg/dL POC Glucose (60-110) mg/dL Calcium 9.5 (8.5-10.1) mg/dL Total Bilirubin 1.0 (0.2-1.0) mg/dL AST 21 (15-37) IU/L ALT 35 (14-63) IU/L Alkaline Phosphatase 97 (46-116) U/L Total Protein 8.4 H (6.4-8.2) g/dL Albumin 4.3 (3.4-5.0) g/dL Globulin 4.1 H (2.6-4.0) g/dL Albumin/Globulin Ratio 1.1 (0.9-1.6) Lipase 119 (73-393) U/L Urine Color YELLOW Urine Appearance SLT CLOUDY Urine pH 7.0 (5.0-8.0) Ur Specific [place] 1.015 (1.001-1.035) Urine Protein TRACE H (NEGATIVE) mg/dL Urine Glucose (UA) NEGATIVE (NEGATIVE) mg/dL Urine Ketones NEGATIVE (NEGATIVE) mg/dL Urine Occult Blood NEGATIVE (NEGATIVE) Urine Nitrite NEGATIVE (NEGATIVE) Urine Bilirubin NEGATIVE (NEGATIVE) Urine Urobilinogen >=8.0 H (<2.0) EU/dL Ur Leukocyte Esterase NEGATIVE (NEGATIVE) Urine RBC 0-2 (0-2/HPF) Urine WBC 0-2 (0-5/HPF) Ur Epithelial Cells MODERATE (NONE-FEW) Urine Bacteria 2+ H (NEGATIVE) SARS-CoV-2 RNA (HARI) (NEGATIVE) 09/25/20 09/25/20 09/25/20 Range/Units 16:15 17:29 19:13 WBC (4.0-11.0) K/uL RBC (4.30-5.90) M/uL Hgb (12.0-16.0) g/dL Hct (36.0-46.0) % MCV (80.0-98.0) fL MCH (27.0-32.0) pg MCHC (31.0-37.0) g/dL RDW Std Deviation (28.0-62.0) fl RDW Coeff of [place]ay[place] (11.0-15.0) % Plt Count (150-400) K/uL MPV (7.40-12.00) fL Neut % (Auto) (48.0-80.0) % Lymph % (Auto) (16.0-40.0) % [place] % (Auto) (0.0-15.0) % Eos % (Auto) (0.0-7.0) % Baso % (Auto) (0.0-1.5) % Neut # (Auto) (1.4-5.7) K/uL Lymph # (Auto) (0.6-2.4) K/uL [place] # (Auto) (0.0-0.8) K/uL Eos # (Auto) (0.0-0.7) K/uL Baso # (Auto) (0.0-0.1) K/uL Nucleated RBC % /100WBC Nucleated RBCs # K/uL Sodium (136-145) mmol/L Potassium (3.5-5.1) mmol/L Chloride (98-107) mmol/L Carbon Dioxide (21.0-32.0) mmol/L BUN (7.0-18.0) mg/dL Creatinine (0.6-1.0) mg/dL Est Cr Clr Drug Dosing mL/min Estimated GFR (MDRD) ml/min Glucose (74-106) mg/dL POC Glucose 70 80 (60-110) mg/dL Calcium (8.5-10.1) mg/dL Total Bilirubin (0.2-1.0) mg/dL AST (15-37) IU/L ALT (14-63) IU/L Alkaline Phosphatase (46-116) U/L Total Protein (6.4-8.2) g/dL Albumin (3.4-5.0) g/dL Globulin (2.6-4.0) g/dL Albumin/Globulin Ratio (0.9-1.6) Lipase (73-393) U/L Urine Color Urine Appearance Urine pH (5.0-8.0) Ur Specific [place] (1.001-1.035) Urine Protein (NEGATIVE) mg/dL Urine Glucose (UA) (NEGATIVE) mg/dL Urine Ketones (NEGATIVE) mg/dL Urine Occult Blood (NEGATIVE) Urine Nitrite (NEGATIVE) Urine Bilirubin (NEGATIVE) Urine Urobilinogen (<2.0) EU/dL Ur Leukocyte Esterase (NEGATIVE) Urine RBC (0-2/HPF) Urine WBC (0-5/HPF) Ur Epithelial Cells (NONE-FEW) Urine Bacteria (NEGATIVE) SARS-CoV-2 RNA (HARI) NEGATIVE (NEGATIVE) 09/26/20 Range/Units 00:10 WBC (4.0-11.0) K/uL RBC (4.30-5.90) M/uL Hgb (12.0-16.0) g/dL Hct (36.0-46.0) % MCV (80.0-98.0) fL MCH (27.0-32.0) pg MCHC (31.0-37.0) g/dL RDW Std Deviation (28.0-62.0) fl RDW Coeff of [place]ay[place] (11.0-15.0) % Plt Count (150-400) K/uL MPV (7.40-12.00) fL Neut % (Auto) (48.0-80.0) % Lymph % (Auto) (16.0-40.0) % [place] % (Auto) (0.0-15.0) % Eos % (Auto) (0.0-7.0) % Baso % (Auto) (0.0-1.5) % Neut # (Auto) (1.4-5.7) K/uL Lymph # (Auto) (0.6-2.4) K/uL [place] # (Auto) (0.0-0.8) K/uL Eos # (Auto) (0.0-0.7) K/uL Baso # (Auto) (0.0-0.1) K/uL Nucleated RBC % /100WBC Nucleated RBCs # K/uL Sodium (136-145) mmol/L Potassium (3.5-5.1) mmol/L Chloride (98-107) mmol/L Carbon Dioxide (21.0-32.0) mmol/L BUN (7.0-18.0) mg/dL Creatinine (0.6-1.0) mg/dL Est Cr Clr Drug Dosing mL/min Estimated GFR (MDRD) ml/min Glucose (74-106) mg/dL POC Glucose 206 H (60-110) mg/dL Calcium (8.5-10.1) mg/dL Total Bilirubin (0.2-1.0) mg/dL AST (15-37) IU/L ALT (14-63) IU/L Alkaline Phosphatase (46-116) U/L Total Protein (6.4-8.2) g/dL Albumin (3.4-5.0) g/dL Globulin (2.6-4.0) g/dL Albumin/Globulin Ratio (0.9-1.6) Lipase (73-393) U/L Urine Color Urine Appearance Urine pH (5.0-8.0) Ur Specific [place] (1.001-1.035) Urine Protein (NEGATIVE) mg/dL Urine Glucose (UA) (NEGATIVE) mg/dL Urine Ketones (NEGATIVE) mg/dL Urine Occult Blood (NEGATIVE) Urine Nitrite (NEGATIVE) Urine Bilirubin (NEGATIVE) Urine Urobilinogen (<2.0) EU/dL Ur Leukocyte Esterase (NEGATIVE) Urine RBC (0-2/HPF) Urine WBC (0-5/HPF) Ur Epithelial Cells (NONE-FEW) Urine Bacteria (NEGATIVE) SARS-CoV-2 RNA (HARI) (NEGATIVE) Med Orders - Current: Current Medications Acetaminophen (Tylenol) 325 mg PO Q4H PRN PRN Reason: Fever Greater Than 101 Hydrocodone Bitart/Acetaminophen ([place] 325-5 Mg) 1 - 2 tab PO Q4H PRN PRN Reason: Pain (moderate 4-6) Dextrose/Water (Dextrose 50% In Water) 50 ml IVPUSH ASDIRECTED PRN PRN Reason: Hypoglycemia Furosemide (Lasix) 20 mg PO DAILY PRN PRN Reason: EDEMA Gabapentin (Neurontin) 600 mg PO TID [facility] Last Admin: 09/26/20 06:27 Dose: 600 mg Documented by: Glucagon (Glucagen) 1 mg IM ASDIRECTED PRN PRN Reason: Hypoglycemia Lactated Ringer's (Ringers, Lactated) 1,000 mls @ 125 mls/hr IV ASDIRECTED [facility] Last Admin: 09/26/20 02:00 Dose: 125 mls/hr Documented by: Cefoxitin Sodium 1 gm/ Premix 50 mls @ 100 mls/hr IV Q8H [facility] Stop: 09/26/20 18:29 Last Admin: 09/26/20 01:36 Dose: 100 mls/hr Documented by: Insulin Aspart (Novolog) 22 unit SUBCUT TIDAC [facility] Lisinopril (Prinivil) 30 mg PO BID [facility] Last Admin: 09/25/20 23:33 Dose: Not Given Documented by: Metoclopramide HCl (Reglan) 10 mg IVPUSH Q6H PRN PRN Reason: Nausea/Vomiting Last Admin: 09/26/20 07:30 Dose: 10 mg Documented by: Morphine Sulfate (Morphine) 1 - 5 mg IVPUSH Q1H PRN PRN Reason: Pain (severe 7-10) Last Admin: 09/26/20 07:30 Dose: 1 mg Documented by: Non-Formulary Medication (Insulin Degludec [Tresiba]) 140 unit SQ DAILY [facility] Ondansetron HCl (Zofran) 4 mg IVPUSH Q6H PRN PRN Reason: Nausea/Vomiting Last Admin: 09/26/20 00:34 Dose: 4 mg Documented by: Liraglutide 1.8 Mg) 0 each SUBCUT DAILY [facility] Sodium Chloride (Saline Flush) 10 ml FLUSH ASDIRECTED PRN PRN Reason: Keep Vein Open Last Admin: 09/25/20 14:21 Dose: 10 ml Documented by: Sodium Chloride (Saline Flush) 2.5 ml FLUSH ASDIRECTED PRN PRN Reason: Keep Vein Open Last Admin: 09/25/20 14:21 Dose: 2.5 ml Documented by: Discontinued Medications Bupivacaine HCl (Sensorcaine-Mpf 0.5%) Confirm Administered Dose 10 ml .ROUTE .STK-MED ONE Stop: 09/25/20 17:27 Cefazolin Sodium (Ancef) Confirm Administered Dose 1 gm .ROUTE .STK-MED ONE Stop: 09/25/20 17:27 Fentanyl (Sublimaze) Confirm Administered Dose 250 mcg .ROUTE .STK-MED ONE Stop: 09/25/20 17:03 Fentanyl (Sublimaze) 50 mcg IVPUSH Q5M PRN PRN Reason: Pain Glycopyrrolate (Robinul) Confirm Administered Dose 0.8 mg .ROUTE .STK-MED ONE Stop: 09/25/20 17:04 Hydromorphone HCl (Dilaudid) 1 mg IVPUSH ONETIME ONE Stop: 09/25/20 16:11 Last Admin: 09/25/20 16:15 Dose: 1 mg Documented by: Lactated Ringer's (Ringers, Lactated) 1,000 mls @ 125 mls/hr IV ASDIRECTED [facility] Last Infusion: 09/25/20 14:27 Dose: 999 mls/hr Documented by: Cefoxitin Sodium 2 gm/ Premix 50 mls @ 100 mls/hr IV ONETIME ONE Stop: 09/25/20 17:21 Last Admin: 09/25/20 21:09 Dose: Not Given Documented by: Acetaminophen 1,000 mg/ Premix 100 mls @ 400 mls/hr IV Q6H PRN PRN Reason: Pain Dextrose/Lactated Ringer's (Dextrose 5%-Lactated Ringers) 1,000 mls @ 125 mls/hr IV ASDIRECTED [facility] Stop: 09/26/20 02:59 Cefoxitin Sodium 1 gm/ Premix 50 mls @ 100 mls/hr IV Q8H [facility] Stop: 09/26/20 12:29 Last Admin: 09/25/20 23:37 Dose: Not Given Documented by: Iopamidol (Isovue Multipack-370 (76%)) 100 ml IVPUSH ONETIME STA Stop: 09/25/20 15:25 Last Admin: 09/25/20 15:25 Dose: 100 ml Documented by: Ketorolac Tromethamine (Toradol) 30 mg IVPUSH ONETIME ONE Stop: 09/25/20 15:45 Last Admin: 09/25/20 15:52 Dose: 30 mg Documented by: Ketorolac Tromethamine (Toradol) Confirm Administered Dose 30 mg .ROUTE .STK-MED ONE Stop: 09/25/20 17:04 Lidocaine (Xylocaine-Mpf 2%) Confirm Administered Dose 5 ml .ROUTE .STK-MED ONE Stop: 09/25/20 17:04 Metoclopramide HCl (Reglan) 5 mg PO TIDAC [facility] Midazolam HCl (Versed 1 Mg/Ml) Confirm Administered Dose 2 mg .ROUTE .STK-MED ONE Stop: 09/25/20 17:02 Morphine Sulfate (Morphine) 4 mg IVPUSH ONETIME ONE Stop: 09/25/20 14:03 Last Admin: 09/25/20 14:20 Dose: 4 mg Documented by: Ondansetron HCl (Zofran) 4 mg IVPUSH ONETIME ONE Stop: 09/25/20 14:03 Last Admin: 09/25/20 14:21 Dose: 4 mg Documented by: Ondansetron HCl (Zofran) Confirm Administered Dose 4 mg .ROUTE .STK-MED ONE Stop: 09/25/20 17:04 Propofol (Diprivan 20 Ml) Confirm Administered Dose 200 mg .ROUTE .STK-MED ONE Stop: 09/25/20 17:02 Rocuronium [place] (Rocuronium [place]) Confirm Administered Dose 50 mg .ROUTE .STK-MED ONE Stop: 09/25/20 17:04 Sugammadex Sodium (Bridion) Confirm Administered Dose 200 mg .ROUTE .STK-MED ONE Stop: 09/25/20 18:48 - Exam Wound/Incisions: Dressing Dry and Intact Quality Assessment: Supplemental Oxygen, DVT Prophylaxis. No: Urine Catheter General: Alert, Oriented, Cooperative, Mild Distress HEENT: Pupils Equal, Pupils Reactive. No: Scleral Icterus Neck: Supple Lungs: Clear to Auscultation, Normal Respiratory Effort Cardiovascular: Regular Rate, Regular Rhythm GI/Abdominal Exam: Normal Bowel Sounds, Soft, Non-Tender. No: Guarding, Rigid, Rebound Extremities: Normal Inspection Skin: Warm, Dry, Intact Psy/Mental Status: Alert, Normal Affect, Normal Mood Sepsis Event Note - Evaluation Sepsis Screening Result: No Definite Risk - Focused Exam Vital Signs: Vital Signs Temp Pulse Resp BP Pulse Ox Pulse Ox 09/26/20 04:00 97.3 F 89 16 134/71 94 L 09/26/20 00:00 97.0 F 64 16 131/69 95 09/25/20 23:00 72 17 130/66 94 L 09/25/20 22:30 62 16 139/57 L 93 L 09/25/20 22:00 77 16 168/86 H 92 L 97 09/25/20 21:30 71 16 142/61 H 93 L 09/25/20 21:00 97.0 F 62 15 147/64 H 93 L 09/25/20 20:45 66 16 147/62 H 93 L 09/25/20 20:30 66 16 153/64 H 90 L 09/25/20 20:15 72 18 155/71 H 92 L 09/25/20 20:00 96.9 F 62 17 169/67 H 97 09/25/20 19:46 62 10 L 143/71 H 99 - Problem List & Annotations (1) Type 2 diabetes mellitus SNOMED Code(s): 37446543 Code(s): E11.9 - TYPE 2 DIABETES MELLITUS WITHOUT COMPLICATIONS Status: Acute Current Visit: Yes Qualifiers: Diabetes mellitus extermination inspector insulin use: with senior living use Diabetes mellitus complication detail: with polyneuropathy (2) Appendicitis SNOMED Code(s): 35528331 Code(s): K37 - UNSPECIFIED APPENDICITIS Status: Acute Current Visit: Yes Qualifiers: Appendicitis type: acute appendicitis Acute appendicitis type: with localized peritonitis Appendicitis gangrene presence: without gangrene Appendicitis perforation presence: without perforation Appendicitis abscess presence: without abscess Qualified Code(s): K35.30 - Acute appendicitis with localized peritonitis, without perforation or gangrene - Problem List Review Problem List Initiated/Reviewed/Updated: Yes - My Orders Last 24 Hours: Active Orders 24 hr Category Date Time Status Admission Status [Patient Status] [ADT] Stat ADT 09/25/20 16:53 Active Antiembolic Devices [RC] PER UNIT ROUTINE Care 09/25/20 17:02 Active Blood Glucose Check, Bedside [RC] QIDACANDBED Care 09/25/20 18:59 Active Insert Urinary Catheter [OM.PC] Timed Care 09/25/20 17:02 Ordered Overnight Pulse Oximetry [RC] Click to Edit Care 09/25/20 19:18 Active Oxygen Therapy [RC] ASDIRECTED Care 09/25/20 17:02 Active Oxygen Therapy [RC] PRN Care 09/25/20 18:55 Active Pulse Oximetry [RC] ASDIRECTED Care 09/25/20 18:55 Active RT Incentive Spirometry [RC] Q1HWA Care 09/25/20 17:02 Active RT Incentive Spirometry [RC] Q1HWA Care 09/25/20 18:55 Active Up ad Elena [RC] PER UNIT ROUTINE Care 09/25/20 18:55 Active Vital Signs [RC] PER UNIT ROUTINE Care 09/25/20 17:02 Active Vital Signs [RC] PER UNIT ROUTINE Care 09/25/20 18:55 Active Advance Diet Instructions [DIET] Diet 09/25/20 Dinner Active Acetaminophen [TylenoL] Med 09/25/20 19:08 Active 325 mg PO Q4H PRN Acetaminophen/HYDROcodone [[place] 325-5 MG] Med 09/25/20 19:08 Active 1 - 2 tab PO Q4H PRN Dextrose 50% in Water Med 09/25/20 19:06 Active 50 ml IVPUSH ASDIRECTED PRN Furosemide [Lasix] Med 09/25/20 19:06 Active 20 mg PO DAILY PRN Gabapentin [Neurontin] Med 09/25/20 22:00 Active 600 mg PO TID Glucagon,Human Recombinant [GlucaGen] Med 09/25/20 19:06 Active 1 mg IM ASDIRECTED PRN Insulin Aspart [NovoLOG] Med 09/26/20 07:30 Active 22 unit SUBCUT TIDAC Insulin Degludec [Tresiba] Med 09/26/20 09:00 Ordered 140 unit SQ DAILY Lactated Ringers [Ringers, Lactated] 1,000 ml Med 09/25/20 17:15 Active IV ASDIRECTED Metoclopramide [Reglan] Med 09/25/20 21:08 Active 10 mg IVPUSH Q6H PRN Morphine Med 09/25/20 19:08 Active 1 - 5 mg IVPUSH Q1H PRN Ondansetron [Zofran] Med 09/25/20 19:08 Active 4 mg IVPUSH Q6H PRN Patient's Own Medication [Ptom] Med 09/26/20 09:00 Active 0 each SUBCUT DAILY Sodium Chloride 0.9% [Saline Flush] Med 09/25/20 14:02 Active 10 ml FLUSH ASDIRECTED PRN Sodium Chloride 0.9% [Saline Flush] Med 09/25/20 14:02 Active 2.5 ml FLUSH ASDIRECTED PRN cefOXitin [Mefoxin in Dextrose,Iso-Osm 1 GM/50 ML] 1 gm Med 09/26/20 02:00 Active Premix Bag 1 bag IV Q8H lisinopriL [Prinivil] Med 09/25/20 21:00 Active 30 mg PO BID Antiembolic Hose [OM.PC] Routine Oth 09/25/20 17:02 Ordered Saline Lock Insert [OM.PC] Stat Oth 09/25/20 14:02 Ordered Resuscitation Status Routine Resus Stat 09/25/20 17:02 Ordered Medication Orders Acetaminophen (Tylenol) 325 mg PO Q4H PRN PRN Reason: Fever Greater Than 101 Hydrocodone Bitart/Acetaminophen ([place] 325-5 Mg) 1 - 2 tab PO Q4H PRN PRN Reason: Pain (moderate 4-6) Dextrose/Water (Dextrose 50% In Water) 50 ml IVPUSH ASDIRECTED PRN PRN Reason: Hypoglycemia Furosemide (Lasix) 20 mg PO DAILY PRN PRN Reason: EDEMA Gabapentin (Neurontin) 600 mg PO TID [facility] Last Admin: 09/26/20 06:27 Dose: 600 mg Documented by: Admin: 09/25/20 23:35 Dose: Not Given Documented by: PRINCE Glucagon (Glucagen) 1 mg IM ASDIRECTED PRN PRN Reason: Hypoglycemia Lactated Ringer's (Ringers, Lactated) 1,000 mls @ 125 mls/hr IV ASDIRECTED [facility] Last Admin: 09/26/20 02:00 Dose: 125 mls/hr Documented by: PRINCE Cefoxitin Sodium 1 gm/ Premix 50 mls @ 100 mls/hr IV Q8H [facility] Stop: 09/26/20 18:29 Last Admin: 09/26/20 01:36 Dose: 100 mls/hr Documented by: PRINCE Insulin Aspart (Novolog) 22 unit SUBCUT TIDAC [facility] Lisinopril (Prinivil) 30 mg PO BID [facility] Last Admin: 09/25/20 23:33 Dose: Not Given Documented by: PRINCE Metoclopramide HCl (Reglan) 10 mg IVPUSH Q6H PRN PRN Reason: Nausea/Vomiting Last Admin: 09/26/20 07:30 Dose: 10 mg Documented by: Admin: 09/25/20 21:43 Dose: 10 mg Documented by: PRINCE Morphine Sulfate (Morphine) 1 - 5 mg IVPUSH Q1H PRN PRN Reason: Pain (severe 7-10) Last Admin: 09/26/20 07:30 Dose: 1 mg Documented by: HILARY Non-Formulary Medication (Insulin Degludec [Tresiba]) 140 unit SQ DAILY [facility] Ondansetron HCl (Zofran) 4 mg IVPUSH Q6H PRN PRN Reason: Nausea/Vomiting Last Admin: 09/26/20 00:34 Dose: 4 mg Documented by: PRINCE Liraglutide 1.8 Mg) 0 each SUBCUT DAILY [facility] Sodium Chloride (Saline Flush) 10 ml FLUSH ASDIRECTED PRN PRN Reason: Keep Vein Open Last Admin: 09/25/20 14:21 Dose: 10 ml Documented by: HOLLY Sodium Chloride (Saline Flush) 2.5 ml FLUSH ASDIRECTED PRN PRN Reason: Keep Vein Open Last Admin: 09/25/20 14:21 Dose: 2.5 ml Documented by: [id number] - Assessment Assessment (Free Text/Narrative):: Patient did complain of feeling hot today. She is, however, afebrile. She is also still having some trouble with nausea. She denies any abdominal pain. - Plan Plan (Free Text/Narrative):: Patient will be monitored in the hospital today until we have her nausea under control. Anticipate discharge later today or possibly tomorrow.
--- NOTE | 2020-09-26 07:50 | PCM48HPAN ---
Post Anesthesia Note - EVALUATION WITHIN 48HRS OF ANESTHETIC Vital Signs in Normal Range: Yes Patient Participated in Evaluation: Yes Respiratory Function Stable: Yes Airway Patent: Yes Cardiovascular Function Stable: Yes Hydration Status Stable: Yes Pain Control Satisfactory: Yes Nausea and Vomiting Control Satisfactory: Yes Mental Status Recovered: Yes Vital Signs: Last Vital Signs Temp 36.3 C 09/26/20 04:00 Pulse 89 09/26/20 04:00 Resp 16 09/26/20 04:00 BP 134/71 09/26/20 04:00 Pulse Ox 94 L 09/26/20 04:00
[2020-09-26] MEDS ORDERED: LIRAGLUTIDE 1.8 MG SUBCUT SCH (09:00)
[2020-09-26] MEDS: Insulin Aspart 100 Units/ML 3 ML Pen SUBCUT SCH ×2 (10:02→12:03)
[2020-09-26] MEDS: Lisinopril 10 MG Tab PO SCH ×2 (10:26→11:58)
[2020-09-26 15:17] VITALS: BP 139/60; PULSE 67
[2020-09-26] MEDS ORDERED: INSULIN DEGLUDEC SUBCUT SCH (21:00)
== END 2020-09-26 18:00 | disposition home or self-care (01) ==
LOC: MW.ED 13:50 → MW.MS 16:53
PROVIDERS: ADMIT Surgery; ATTEND Surgery
DX: K35.80 Unspecified acute appendicitis (principal); E78.00 Pure hypercholesterolemia, unspecified; I10 Essential (primary) hypertension; E11.9 Type 2 diabetes mellitus without complications; Z79.4 Long term (current) use of insulin; Z01.812 Encounter for preprocedural laboratory examination; Z20.822 Contact with and (suspected) exposure to COVID-19; Z79.899 Other long term (current) drug therapy; Z98.890 Other specified postprocedural states
CPT/HCPCS: 36415; 44970; 74177; 80053; 81001; 82962; 83690; 85025; 87635; 96361; 96374; 96375; 99285; A9270; J0330; J0690; J0694; J1170; J1885; J2001; J2250; J2270; J2405; J2704; J2765; J3010; J3490; J7120; Q9967; 88304; 96365; 96376; 99284; G0378; U0002